=== PATIENT | male | born 1945 | race Caucasian/White ===

== ENCOUNTER → 2024-05-27 13:05 | Outpatient (REF) | payer MEDICARE, MEDICAID, SELFPAY | LOC: REG 13:05 | PROVIDERS: ATTENDING PHYSICIAN Internal Medicine Hematology & Oncology | DX: D59.10 Autoimmune hemolytic anemia, unspecified (principal); D63.0 Anemia in neoplastic disease; D75.81 Myelofibrosis | CPT/HCPCS: 36415; 83010; 83615; 85045; 86850; 86880; 86900; 86901; 86920; 86922 ==

== ENCOUNTER 2024-05-30 07:47 | Outpatient (RCR) | payer MEDICARE, MEDICAID, SELFPAY ==
[2024-05-27 14:24] LABS: LDH 661 U/L (120-246)
[2024-05-27 14:40] LABS: Reticulocyte Count 9.3 % (0.4-2.8)
[2024-05-30 03:19] LABS: Haptoglobin <10 mg/dL (30-200)
[2024-05-30 09:05] VITALS: BP 134/60
[2024-05-30 09:22] VITALS: BP 112/55
[2024-05-30 11:04] VITALS: BP 127/62
== END 2024-06-04 23:59 | disposition home or self-care (01) ==
LOC: OID 07:47
PROVIDERS: ATTENDING PHYSICIAN Internal Medicine Hematology & Oncology; FAMILY PHYSICIAN Nurse Practitioner
DX: C85.90 Non-Hodgkin lymphoma, unspecified, unspecified site (principal); D75.81 Myelofibrosis; D59.10 Autoimmune hemolytic anemia, unspecified
CPT/HCPCS: 36415; 36430; 83010; 83615; 85045; 86850; 86880; 86900; 86901; 86920; 86922; P9016

== ENCOUNTER 2025-05-15 17:01 | Emergency (ER) | payer SELFPAY ==
[2025-05-15] VITALS (11 sets, daily range): BP systolic 80–132; BP diastolic 49–75; BMI 19.2
--- NOTE | 2025-05-15 17:21 | EDRN ---
Dr. Frazier in room w/ pt.
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
[2025-05-15 17:54] LABS: ALT (SGPT) 34 U/L (0-50); AST (SGOT) 77 U/L (17-59); Albumin 3.8 g/dl (3.5-5.0); Alkaline Phosphatase 364 U/L (38-126); Blood Urea Nitrogen 26 mg/dl (9-20); Calcium 8.2 mg/dl (8.4-10.2); Carbon Dioxide 29 mmol/L (22-30); Chloride 106 mmol/L (98-107); Glucose 105 mg/dl (70-99); Potassium 4.2 mmol/L (3.5-5.1); Sodium 139 mmol/L (135-145); Total Protein 5.7 g/dl (6.3-8.2); eGFR > 60.00
[2025-05-15 18:08] LABS: Hematocrit 29.4 % (39.0-52.0); Hemoglobin 9.9 g/dL (13.0-18.0); Mean Corp Hgb Conc. 33.7 g/dL (33.0-37.0); Mean Corpuscular Volume 101.4 fL (80.0-94.0); Platelet Count 162 10^3/uL (130-400); Red Cell Dist. Width 23.2 % (11.5-14.5)
[2025-05-15 18:59] LABS: Absolute Neutrophils -Man Diff 41.1 10^3/uL (1.4-6.5)
[2025-05-15 19:00] LABS: Macrocytosis 1+; Normal RBC Morphology No; Platelets Checked Yes
[2025-05-15 19:01] LABS: Polychromasia 1+; Total Cells Counted 100
== END 2025-05-15 20:54 | disposition short-term general hospital (02) ==
LOC: EMR 17:01
PROVIDERS: EMERGENCY PHYSICIAN Emergency Medicine; FAMILY PHYSICIAN Nurse Practitioner
DX: S36.039A Unspecified laceration of spleen, initial encounter (principal); S13.4XXA Sprain of ligaments of cervical spine, initial encounter; R07.89 Other chest pain; V49.49XA Driver injured in collision with other motor vehicles in traffic accident, initial encounter; I31.39 Other pericardial effusion (noninflammatory); R16.1 Splenomegaly, not elsewhere classified; Z85.72 Personal history of non-Hodgkin lymphomas; Z87.828 Personal history of other (healed) physical injury and trauma; Z98.2 Presence of cerebrospinal fluid drainage device
CPT/HCPCS: 99291; 70450; 71260; 72125; 74177; 80053; 85025; 86850; 86900; 86901; Q9967